=== PATIENT | male | born 1960 | race Caucasian/White ===

== ENCOUNTER 2024-02-05 10:10 | Observation (INO) | payer MEDICARE, BC ==
[2024-01-29 10:59] LABS: BASOPHILS % (AUTO) 0.2 % (0-1); BILIRUBIN,URINE NEGATIVE (Neg); CLARITY,URINE CLEAR (Clear); COLOR,URINE STRAW (Yellow); EOSINOPHILS % (AUTO) 0.3 % (0-6); GLUCOSE, URINE NEGATIVE (Neg); KETONES,URINE NEGATIVE (Neg); LEUKOCYTE ESTERASE ,URINE NEGATIVE (Neg); LYMPHOCYTES # (AUTO) 1.2 X10'3 (1.1-4.8); LYMPHOCYTES % (AUTO) 10.9 % (21-51); MEAN CORPUSCULAR HEMOGLOBIN 28.1 PG (27.0-31.0); MEAN CORPUSCULAR HGB CONC 32.7 g/dL (33.0-36.5); MEAN CORPUSCULAR VOLUME 86.1 FL (78-98); MEAN PLATELET VOLUME 8.8 FL (7.4-10.4); MONOCYTES # (AUTO) 0.8 X10'3 (0-0.9); MONOCYTES % (AUTO) 7.5 % (2-12); NEUTROPHILS # (AUTO) 8.5 X10'3 (1.8-7.7); NEUTROPHILS % (AUTO) 81.1 % (42-75); NITRITES, URINE NEGATIVE (Neg); OCCULT BLOOD,URINE NEGATIVE (Neg); PRE OP HEMATOCRIT 46.8 % (42.0-52.0); PRE OP HEMOGLOBIN 15.3 g/dL (14.0-17.9); PRE OP PLATELET COUNT 193 X10'3 (140-440); PRE OP WHITE BLOOD COUNT 10.5 10'3 (4.8-10.8); PROTEIN,URINE NEGATIVE (Neg); RED BLOOD COUNT 5.43 X10'6 (4.70-6.10); RED CELL DISTRIBUTION WIDTH 15.6 % (11.5-14.5)
[2024-01-29 11:00] LABS: UA COLLECTION TYPE NON-SPECIFIED
[2024-01-29 11:15] LABS: ALBUMIN 3.5 G/DL (3.4-5.0); ALBUMIN/GLOBULIN RATIO 0.9 (1.1-1.5); ALKALINE PHOSPHATASE 94 IU/L (46-116); BLOOD UREA NITROGEN 22 MG/DL (7-18); BUN/CREATININE RATIO 16.3 (10.0-20.0); CALCIUM 9.2 MG/DL (8.5-10.1); CHLORIDE 101 MMOL/L (99-107); CREATININE 1.35 MG/DL (0.60-1.10); PRE OP ALT 19 U/L (30-65); PRE OP ANION GAP 8 (8-16); PRE OP AST 30 U/L (10-37); PRE OP BILIRUB, TOTAL 0.8 MG/DL (0.0-1.0); PRE OP GLUCOSE 73 MG/DL (70-104); PRE OP SODIUM 139 MMOL/L (135-145); TOTAL CARBON DIOXIDE 30.1 MMOL/L (24-32); TOTAL PROTEIN 7.3 G/DL (6.4-8.2); eGFR 53 ML/MIN
[2024-01-29 11:18] LABS: PRE OP POTASSIUM 2.8 MMOL/L (3.4-5.1)
[~2024-02-05] VITALS: Ht 185.4 cm; Wt 96.9 kg
[2024-02-05] VITALS (27 sets, daily range): BP systolic 87–130; BP diastolic 53–80; PULSE 65–85; RESP 12–20; TEMP 98–98.3; O2SAT 91–99
[2024-02-05] MEDS: cefazolin 2gm/D5W 100mL 100 ML IV ONE (05:30)
[~2024-02-05 10:10] MED LIST: ACET-1008 PO; ALB0.5UD NEB; ALPR-624 PO; AMIO200T72 PO; CARV3.122 PO; CLOP-32 PO; DOCUMENT DATE & TIME OF BETA-BLOCKER PO ONE; FURO-149 PO; HYDR-3973 PO; IMIQ1CRE22 TOP; LEVO50CA4 PO; PANT-47 PO; POTA-188 PO; RIVA20TA PO; ROSU40TA PO; SACU1TAB PO; TADA5TAB2 PO; TEST60GE3 TOP; TRET20CR2 TOP; VITAMIN D3
[2024-02-05] MEDS: famotidine 20mg tablet PO ONE (11:48)
[2024-02-05] MEDS: ringers solution, lacted 1,000 ML IV SCH (11:50)
[2024-02-05 11:51] LABS: ISTAT CREATININE 1.4 mg/dL (0.8-1.3); ISTAT HGB 12.9 g/dl (14.0-17.9); ISTAT IONIZED CALCIUM 1.15 mmol/L (1.03-1.32); ISTAT K 3.5 mmol/L (3.5-5.1); POC BUN/CREATININE RATIO 18.6 (5.4-32.0)
[2024-02-05] MEDS ORDERED: ipratropium/albuterol 3ml nebule NEB PRN (13:00)
[2024-02-05] MEDS: ipratropium/albuterol 3ml nebule NEB ONE (13:09)
[2024-02-05] MEDS ORDERED: triamcinolone acetonide 40mg/ml inj ONE (14:23)
[2024-02-05] MEDS ORDERED: epiNEPHrine 1 mg/ml inj ONE (14:23)
[2024-02-05] MEDS ORDERED: BUPIVAcaine HCl 0.25%/EPInephrine 1:200,000 inj. 10 ML VIAL ONE (14:24)
[2024-02-05] MEDS ORDERED: BUPIVAcaine 0.5% inj/PF 30 ML ONE (14:24)
[2024-02-05] MEDS ORDERED: BUPIVAcaine/dex-water/PF 7.5 mg/ml 2ml ampul ONE (14:45)
[2024-02-05] MEDS ORDERED: MIDAZolam 1 MG/ML 5ML VIAL ONE (14:51)
[2024-02-05] MEDS ORDERED: fentaNYL/PF 50MCG/1 ML 2ML syringe ONE (14:51)
[2024-02-05] MEDS: bupivacaine 0.25%/epinephrine 1:200,000 inj (contains preserv. MDV) IJ ONE (15:22)
[2024-02-05] MEDS: epiNEPHrine 1 mg/ml inj SQ ONE (15:40)
[2024-02-05] MEDS ORDERED: propofol inj 20 ML IV ONE (15:56)
[2024-02-05] MEDS ORDERED: ePHEDrine 50MG/ML INJ. ONE (15:56)
[2024-02-05] MEDS ORDERED: meperidine/PF 25mg/ml syringe IV PRN ×3 (16:55)
[2024-02-05] MEDS ORDERED: labetalol 20mg/4ml (5mg/ml) syringe IV PRN (16:55)
[2024-02-05] MEDS ORDERED: morphine 2 MG/ML inj. syringe IV PRN (16:55)
[2024-02-05] MEDS ORDERED: morphine 4 MG/ML inj SYRINge IV PRN (16:55)
[2024-02-05] MEDS ORDERED: proCHLORperazine 10 MG/2 ml inj IV PRN (16:55)
[2024-02-05] MEDS ORDERED: ringers solution, lacted 1,000 ML IV SCH (16:55)
[2024-02-05] MEDS ORDERED: enalaprilat dihydrate 2.5mg/2ml vial IV PRN (16:55)
--- NOTE | 2024-02-05 17:19 | NUR ---
Received from OR via [facility] , accompanied by Anesthesiologist DR MOONEY and report given by Anesthesiologist. PATIENT AWAKE, PT REPORTS NO PAIN, BP LOW - DR MOONEY AWARE - NO ORDERS AT THIS TIME, SCD ON, 20G TO R FA, PT HAD SPINAL, HAS SENSATION AT DERMATOME LEVEL APPROXIMATELY S5. RLE DRSG CDI W/ SAVI WRAP. WILL CONTINUE TO CLOSELY MONITOR. Addendum: 02/05/24 at 1739 by Lynn Ward RN Amended: Links added.
[2024-02-05] MEDS: ceFAZolin/D5W- 1GM premix 50 ML IV ONE (18:19)
[2024-02-05] MEDS: ondansetron/PF 4mg/2ml inj IV PRN (18:47)
[2024-02-05] MEDS ORDERED: ondansetron/PF 4mg/2ml inj IV PRN (19:25)
[2024-02-05] MEDS ORDERED: oxyCODONE/APAP 10/325mg tablet PO PRN (19:25)
[2024-02-05] MEDS ORDERED: IMIQUIMOD 5% TOP PRN (19:45)
[2024-02-05] MEDS ORDERED: potassium chloride 10mEq ER tablet PO PRN (19:45)
[2024-02-05] MEDS ORDERED: TRETINOIN TOP PRN (19:45)
[2024-02-05] MEDS ORDERED: HYDROcodone/acetaminophen 10/325mg tab PO PRN (19:45)
[2024-02-05] MEDS ORDERED: furosemide 40mg tablet PO PRN (19:45)
--- NOTE | 2024-02-05 19:45 | NUR ---
SPOKE WITH DR TRUJILLO. ORDER TO ADMIT TO ORTHO FLOOR OVERNIGHT DUE TO LINGERING EFFECTS OF THE SPINAL ANESTHESIA. PT IS REGAINING FEELING TO LLE. STARTING TO REGAIN FEELING ON THE RLE. PT CAN SLIGHTLY WIGGLE TOES AND LIFT LEFT LEG, HOWEVER MOBILITY IS STILL VERY LIMITED. Addendum: 02/05/24 at 8 by Lynn Ward RN Amended: Links added.
[2024-02-05] MEDS ORDERED: TEST75GE10 TOP (19:47)
--- NOTE | 2024-02-05 19:59 | NUR ---
PATIENT HAS MET ALL CRITERIA FOR TRANSFER TO THE ORTHO FLOOR. VSS. RLE DRESSINGS INTACT. BED LOW, CALL LIGHT PRESENT AND 2 RAILS UP. RN PRESENT TO ACCEPT CARE OF PATIENT AND REPORT HAS BEEN CALLED. ALL QUESTIONS ANSWERED TO ACCEPTING RN. Addendum: 02/05/24 at 2002 by Lynn Ward RN Amended: Links added.
[2024-02-05] MEDS ORDERED: albuterol 2.5 MG/3 ML nebule NEB PRN (20:00)
[2024-02-05] MEDS: sacubitril/valsartan 24mg-26mg tablet PO SCH (20:00)
[2024-02-05] MEDS: ALPRAZolam 0.5mg tablet PO PRN (21:31)
[2024-02-05] MEDS: oxyCODONE/APAP 10/325mg tablet PO PRN (21:31)
[2024-02-05] MEDS: pantoprazole 40mg Tablet.DR PO SCH (21:32)
[2024-02-05] MEDS: carVEDilol 3.125mg tablet PO SCH (21:33)
[2024-02-06 00:30] VITALS: BP 126/63; PULSE 83; O2SAT 95
[2024-02-06 02:00] VITALS: BP 122/68; PULSE 75; RESP 19; TEMP 97.9; O2SAT 95
[2024-02-06 06:00] VITALS: BP 125/67; PULSE 79; RESP 14; TEMP 98.6; O2SAT 97
--- NOTE | 2024-02-06 06:40 | NUR ---
Patient in room ORTHO 4012. I have received report from Aminah JEFFERSON and had the opportunity to ask questions and assume patient care.
--- NOTE | 2024-02-06 06:47 | NUR ---
Problems reprioritized. Patient report given, questions answered & plan of care reviewed with Kay KIRBY.
[2024-02-06 08:00] VITALS: RESP 14; O2SAT 97
[2024-02-06] MEDS ORDERED: TESTOSTERONE TOP SCH (08:00)
[2024-02-06] MEDS ORDERED: clopidogrel 75mg tablet PO SCH (08:00)
[2024-02-06] MEDS: levoTHYROXINE 25mcg tablet PO SCH (08:05)
[2024-02-06] MEDS: amiodarone 200mg tablet PO SCH (08:05)
[2024-02-06] MEDS: atorvastatin 20mg tablet PO SCH (08:08)
[2024-02-06 08:36] VITALS: PULSE 74; RESP 18; O2SAT 96
--- NOTE | 2024-02-06 11:26 | NUR ---
Reviewed and agree with Kay KIRBY's assessment
--- NOTE | 2024-02-06 12:00 | NUR ---
Patient discharge home today. IV removed and all belongings were gathered. All discharge instructions were explained and all questions were answered. Patient a&oX4 and appropriate for discharge. Patient was wheeled downstairs and helped into private vehicle.
[2024-02-06] MEDS ORDERED: rivaroxaban 20mg tablet PO SCH (18:00)
== END 2024-02-06 11:34 | disposition home or self-care (01) ==
LOC: PAS 10:10 → ORTHO 4S 19:37
PROVIDERS: ADMIT Orthopaedic Surgery; ATTEND Orthopaedic Surgery
DX: M23.41 Loose body in knee, right knee (principal); M17.11 Unilateral primary osteoarthritis, right knee; D23.71 Other benign neoplasm of skin of right lower limb, including hip; M25.571 Pain in right ankle and joints of right foot; L57.0 Actinic keratosis; G89.29 Other chronic pain; I25.10 Atherosclerotic heart disease of native coronary artery without angina pectoris; K21.9 Gastro-esophageal reflux disease without esophagitis; E03.9 Hypothyroidism, unspecified; Z79.899 Other long term (current) drug therapy; Z95.1 Presence of aortocoronary bypass graft
CPT/HCPCS: 11402; 27331; 73560; 73564; 73600; 80047; 80053; 81003; 82948; 93005; 94640; 94760; A4215; A4618; A7000; G0378; J0690; J3490; J7120; 36415; 85025; 87081; A6222; A6449; J0171; J0665; J2250; J2405; J2704; J3010; J3301; S0020

== ENCOUNTER 2024-07-26 12:58 | Outpatient (CLI) | payer BC, MEDICARE ==
[~2024-07-26 12:58] MED LIST changes: -DOCUMENT DATE & TIME OF BETA-BLOCKER PO ONE; -TEST60GE3 TOP; +TEST75GE10 TOP
== END 2024-07-26 23:59 | disposition home or self-care (01) ==
LOC: LAB 12:58
PROVIDERS: ATTEND Emergency Medicine
DX: L97.526 Non-pressure chronic ulcer of other part of left foot with bone involvement without evidence of necrosis (principal); L97.522 Non-pressure chronic ulcer of other part of left foot with fat layer exposed
CPT/HCPCS: 87070; 87075; 87077; 87186

== ENCOUNTER 2024-09-26 08:18 | Outpatient (CLI) | payer MEDICARE ==
[2024-09-26 08:10] LABS: BASOPHILS # (AUTO) 0.1 X10'3 (0-0.2); BASOPHILS % (AUTO) 1.2 % (0-1); EOSINOPHILS % (AUTO) 0.7 % (0-6); HEMATOCRIT 38.5 % (42.0-52.0); HEMOGLOBIN 12.4 g/dl (14.0-17.9); LYMPHOCYTES # (AUTO) 0.9 X10'3 (1.1-4.8); LYMPHOCYTES % (AUTO) 15.5 % (21-51); MEAN CORPUSCULAR HEMOGLOBIN 27.6 PG (27.0-31.0); MEAN CORPUSCULAR HGB CONC 32.3 g/dL (33.0-36.5); MEAN CORPUSCULAR VOLUME 85.4 FL (78-98); MEAN PLATELET VOLUME 9.8 FL (7.4-10.4); MONOCYTES # (AUTO) 0.6 X10'3 (0-0.9); MONOCYTES % (AUTO) 9.8 % (2-12); NEUTROPHILS # (AUTO) 4.2 X10'3 (1.8-7.7); NEUTROPHILS % (AUTO) 72.8 % (42-75); PLATELET COUNT 165 X10'3 (140-440); RED BLOOD COUNT 4.51 X10'6 (4.70-6.10); RED CELL DISTRIBUTION WIDTH 14.2 % (11.5-14.5); WHITE BLOOD COUNT 5.7 X10'3 (4.5-11.0)
[2024-09-26 08:16] LABS: ALBUMIN 3.3 G/DL (3.4-5.0); ANION GAP 9 (8-16); BLOOD UREA NITROGEN 18 MG/DL (7-18); BUN/CREATININE RATIO 18.4 (10.0-20.0); CALCIUM 8.8 MG/DL (8.5-10.1); CHLORIDE 105 MMOL/L (99-107); CREATININE 0.98 MG/DL (0.60-1.10); GLUCOSE 109 MG/DL (70-104); SODIUM 142 MMOL/L (135-145); TOTAL CARBON DIOXIDE 28.2 MMOL/L (24-32); eGFR 77 ML/MIN
[~2024-09-26 08:18] MED LIST changes: -LEVO50CA4 PO; +LEVO50CA5 PO
== END 2024-09-26 23:59 | disposition home or self-care (01) ==
LOC: CANPRECLI → LAB 08:18
PROVIDERS: ATTEND Internal Medicine Infectious Disease
DX: T81.41XD Infection following a procedure, superficial incisional surgical site, subsequent encounter (principal); X58.XXXD Exposure to other specified factors, subsequent encounter
CPT/HCPCS: 36415; 80048; 85025

== ENCOUNTER 2024-11-06 08:32 | Day surgery (SDC) | payer MEDICARE, BC ==
[2024-10-31 11:09] LABS: BILIRUBIN,URINE NEGATIVE (Neg); CLARITY,URINE CLEAR (Clear); COLOR,URINE YELLOW (Yellow); GLUCOSE, URINE NEGATIVE (Neg); KETONES,URINE NEGATIVE (Neg); LEUKOCYTE ESTERASE ,URINE NEGATIVE (Neg); NITRITES, URINE NEGATIVE (Neg); OCCULT BLOOD,URINE SMALL (Neg); PROTEIN,URINE NEGATIVE (Neg); UROBILINOGEN,URINE 0.2 E.U/dL (0.2-1.0)
[2024-10-31 11:11] LABS: UA COLLECTION TYPE CLN CATCH MIDSTREAM
[2024-10-31 11:14] LABS: BASOPHILS # (AUTO) 0.1 X10'3 (0-0.2); BASOPHILS % (AUTO) 0.8 % (0-1); EOSINOPHILS # (AUTO) 0.1 X10'3 (0-0.9); EOSINOPHILS % (AUTO) 0.9 % (0-6); LYMPHOCYTES % (AUTO) 15.2 % (21-51); MEAN CORPUSCULAR HEMOGLOBIN 25.9 PG (27.0-31.0); MEAN CORPUSCULAR VOLUME 80.8 FL (78-98); MEAN PLATELET VOLUME 9.4 FL (7.4-10.4); MONOCYTES # (AUTO) 0.8 X10'3 (0-0.9); MONOCYTES % (AUTO) 12.2 % (2-12); NEUTROPHILS # (AUTO) 4.8 X10'3 (1.8-7.7); NEUTROPHILS % (AUTO) 70.9 % (42-75); PRE OP HEMATOCRIT 40.7 % (42.0-52.0); PRE OP PLATELET COUNT 207 X10'3 (140-440); PRE OP WHITE BLOOD COUNT 6.7 10'3 (4.8-10.8); RED BLOOD COUNT 5.04 X10'6 (4.70-6.10); RED CELL DISTRIBUTION WIDTH 14.2 % (11.5-14.5)
[2024-10-31 11:15] LABS: BACTERIA,URINE NONE SEEN /HPF (Neg); SQUAMOUS EPITHELIAL CELL,UR FEW /LPF (FEW); WBC,URINE 0-4 /HPF (0-4)
[2024-10-31 11:16] LABS: MUCUS STRANDS NONE SEEN /LPF (Neg)
[2024-10-31 11:27] LABS: ALBUMIN 3.3 G/DL (3.4-5.0); ALBUMIN/GLOBULIN RATIO 0.9 (1.1-1.5); ALKALINE PHOSPHATASE 154 IU/L (46-116); BLOOD UREA NITROGEN 24 MG/DL (7-18); BUN/CREATININE RATIO 18.6 (10.0-20.0); CALCIUM 9.2 MG/DL (8.5-10.1); CHLORIDE 104 MMOL/L (99-107); CREATININE 1.29 MG/DL (0.60-1.10); PRE OP ALT 37 U/L (30-65); PRE OP ANION GAP 10 (8-16); PRE OP AST 30 U/L (10-37); PRE OP BILIRUB, TOTAL 0.5 MG/DL (0.0-1.0); PRE OP GLUCOSE 100 MG/DL (70-104); PRE OP SODIUM 142 MMOL/L (135-145); TOTAL CARBON DIOXIDE 28.3 MMOL/L (24-32); TOTAL PROTEIN 7.1 G/DL (6.4-8.2); eGFR 56 ML/MIN
[2024-10-31 11:36] LABS: PRE OP POTASSIUM 3.3 MMOL/L (3.4-5.1)
[~2024-11-06] VITALS: Ht 185.4 cm; Wt 95.0 kg
[2024-11-06] VITALS (9 sets, daily range): BP systolic 111–159; BP diastolic 50–73; PULSE 66–83; RESP 10–16; TEMP 98.2; O2SAT 95–99
[~2024-11-06 08:32] MED LIST changes: -CARV3.122 PO; -IMIQ1CRE22 TOP
[2024-11-06] MEDS: ceFAZolin 2gm/dext,iso 50mL 50 ML IV ONE (09:21)
[2024-11-06] MEDS: famotidine 20mg tablet PO ONE (09:22)
[2024-11-06] MEDS: ringers solution, lacted 1,000 ML IV SCH (09:23)
[2024-11-06] MEDS ORDERED: meperidine/PF 25mg/ml syringe IV PRN ×3 (09:25)
[2024-11-06] MEDS ORDERED: morphine 4 MG/ML inj SYRINge IV PRN (09:25)
[2024-11-06] MEDS ORDERED: labetalol 20mg/4ml (5mg/ml) syringe IV PRN (09:25)
[2024-11-06] MEDS ORDERED: proCHLORperazine 10 MG/2 ml inj IV PRN (09:25)
[2024-11-06] MEDS ORDERED: enalaprilat 1.25mg/ml 2ml vial IV PRN (09:25)
[2024-11-06] MEDS ORDERED: ringers solution, lacted 1,000 ML IV SCH (09:25)
[2024-11-06] MEDS ORDERED: morphine 2 MG/ML inj. syringe IV PRN (09:25)
[2024-11-06] MEDS ORDERED: bacitracin 15gm ointment TP ONE (11:07)
[2024-11-06] MEDS ORDERED: BUPIVAcaine 2.5mg/ml inj 50ml vial (contains preservative) ONE (11:07)
[2024-11-06] MEDS ORDERED: midazolam 1 mg/ML 2ml injection ONE (12:06)
[2024-11-06] MEDS ORDERED: fentaNYL/PF 50MCG/1 ML 2ML syringe ONE (12:06)
[2024-11-06] MEDS ORDERED: propofol inj 20 ML IV ONE (12:07)
[2024-11-06] MEDS ORDERED: LIDOcaine 1%/PF 5ML 10 MG/ML VIAL ONE (12:07)
[2024-11-06] MEDS ORDERED: sevoflurane 250ml liquid IH ONE (12:41)
[2024-11-06] MEDS: ondansetron/PF 4mg/2ml inj IV PRN (13:52)
[2024-11-06] MEDS: BUPIVAcaine/PF 2.5 mg/ml (0.25%) 30ml vial IJ ONE (14:02)
--- NOTE | 2024-11-07 02:08 | OPERATIVE REPORT ---
DATE OF SURGERY: 11/06/2024 DICTATING PHYSICIAN: EVARISTO PULIDO DPM PREOPERATIVE DIAGNOSES: Left foot pain, left foot infection, left foot chronic ulcerations. POSTOPERATIVE DIAGNOSES: Left foot pain, left foot infection, left foot chronic ulcerations. PROCEDURES: * Partial great toe amputation, left foot. * Skin flap rotational closure, left foot. * Proximal phalanx great toe exostectomy, left foot. SURGEON: Evaristo Pulido DPM GRILL PREP COOK: None. ANESTHESIA: Dr. Solano, aquiles MAC general anesthesia. HEMOSTASIS: None. COMPLICATIONS: None. SPECIMENS: Left great toe for pathological specimen. ESTIMATED BLOOD LOSS: Less than 10 mL. HARDWARE: None. INDICATIONS: The patient presented to the office with the above-listed complaints, which has been unresponsive to conservative treatment options, thus surgical options have been offered along with the potential risks, complications, and surgical outcomes being fully explained to the patient's level of understanding. No guarantees were given. Clinical and radiographic data correlate with the above diagnosis. The patient presented from wound care after chronic trials of trying to heal his wounds, but unfortunately, this did not help. The patient was concerned about the overall chronicity of his wounds as well as the bone infection and healing. I offered him multiple treatment options and the patient ended up healing his second digit, so I did not have to perform any second digit surgery today. This is per the patient's request as well. I did talk to the patient once again about a partial amputation at the IPJ in order to help with the patient's longevity of this procedure in order to help our chances with healing and ultimately, this is what the patient and his elected to undergo. DESCRIPTION OF PROCEDURE: The patient was brought to the operating room and placed on the operating table in the supine position. The patient was induced under a modified MAC anesthesia and then the foot and ankle prepped and draped in the usual aseptic fashion. No tourniquet was used. Preoperative antibiotics were given and dosed appropriately. We then brought our attention to the distal aspect of the patient's left great toe. We then made an elliptical type of incision over the distal phalanx of the left great digit. This encompassed the wound to the dorsal aspect of the IPJ. We carefully dissected down to the level of bone using careful techniques in order to avoid any vital neurovascular structures. After this, we identified the distal phalanx, which was soft and had the appearance of infected bone, so therefore, we continued our dissection down to the level of the joint at the IPJ, which was then disarticulated. The toe was disarticulated and then this was placed into a specimen cup and sent for pathological specimen. There was no purulent drainage within the joint. The patient had a large prominence to the dorsal aspect of the IPJ at the proximal phalanx, which was carefully rongeured away and then all rough edges were then smoothed. After this, we then flushed with copious amounts of sterile normal saline and IrriSept solution. After this, we then performed a rotational skin flap closure, which was less than 10 cm, and we used the plantar skin in order to rotate and advance the skin over the dorsal aspect in order to have appropriate skin closure. The skin was closed with a 3-0 nylon in a horizontal mattress technique. It was noted that there was excellent closure and excellent stability of our closure, so therefore, we dressed our incision with triple antibiotic ointment followed by Adaptic, 4x4s, and a Webril. The patient was placed into an Kris bandage in formation of moderate compressive dressing. The patient was then taken out of the anesthesia and then placed into PACU. Vital signs stable and vascular status intact to the operative foot. The patient is going to be partially protected weightbearing to the operative foot. The patient was given a boot, which was dispensed from my office and fit to the patient today. The patient is to follow up with me in approximately 1-2 weeks after surgery. The entire case was performed in a teaching fashion. I was available pre and and postoperatively to answer any questions from the patient and his family. EVARISTO PULIDO DPM TID: [id number] RECEIPT: [id number] SANTIAGO/KASSANDRA
--- NOTE | 2024-11-07 15:56 | PATHOLOGY REPORT ---
[facility] [address] [place] [address] SURGICAL PATHOLOGY REPORT CaseNumber: [id number] Surgeon:Evaristo Pulido M.D. CLINICAL INFORMATION CLINICAL INFORMATION: Not provided. DIAGNOSIS DIAGNOSIS: TOE, LEFT GREAT; AMPUTATION - ULCER WITH ADVANCED ATHEROSCLEROSIS. - VIABLE RESECTION MARGIN WITH LIMITED MINIMAL CHRONIC INFLAMMATION. - NEGATIVE FOR DYSPLASIA AND MALIGNANCY. MICROSCOPIC DESCRIPTION MICROSCOPIC DESCRIPTION: Microscopic examination is performed on two H&E stained slides. Present is u lcer extending into the superficial soft tissue. There is advanced atherosclerosis present. The resec tion margin appears viable with limited chronic inflammation. There is no evidence of dysplasia or ma lignancy within the tissue. (st) GROSS DESCRIPTION GROSS DESCRIPTION: Received in a container of formalin labeled with the patient's name, number, and " L great toe" is a portion of toe which measures 4 cm long by 3 cm in diameter. There are two areas o f ulceration measuring 1.5 and 0.7 cm. Sections are submitted as follows: A1) Skin at resection marginA2) Ulcers The time at which the specimen was removed was 1245. The time at which the specimen was placed in [facility] was 1246. Electronically signed by: Nomi Galvez D.O. 11/07/2024 3:21:00 PM
== END 2024-11-06 14:25 | disposition home or self-care (01) ==
LOC: PAS 08:32
PROVIDERS: ATTEND Podiatrist Foot & Ankle Surgery
DX: L97.528 Non-pressure chronic ulcer of other part of left foot with other specified severity (principal); I70.245 Atherosclerosis of native arteries of left leg with ulceration of other part of foot; M21.6X2 Other acquired deformities of left foot; M79.672 Pain in left foot; I42.9 Cardiomyopathy, unspecified; I25.2 Old myocardial infarction; I10 Essential (primary) hypertension; E11.9 Type 2 diabetes mellitus without complications; G47.30 Sleep apnea, unspecified; I25.10 Atherosclerotic heart disease of native coronary artery without angina pectoris; E78.5 Hyperlipidemia, unspecified; Z88.8 Allergy status to other drugs, medicaments and biological substances; Z98.890 Other specified postprocedural states; Z95.5 Presence of coronary angioplasty implant and graft; Z79.899 Other long term (current) drug therapy; Z87.891 Personal history of nicotine dependence
CPT/HCPCS: 28825; 36415; 73660; 80053; 81001; 82948; 85025; A4618; A6223; A6253; A6402; A6449; A7000; J2250; J2405; J2704; J3010; J3490; J7030; J7120; Z7506; Z7512; Z7610; 76000

== ENCOUNTER 2025-06-10 08:04 | Day surgery (SDC) | payer MEDICARE, BC ==
[2025-06-10] VITALS (8 sets, daily range): BP systolic 115–142; BP diastolic 74–82; PULSE 63–74; RESP 16–22; TEMP 98.2; O2SAT 94–99
[~2025-06-10] VITALS: Ht 185.4 cm; Wt 99.3 kg
[2025-06-10] MEDS: metoprolol tartrate 12.5mg (1/2 tablet) PO ONE (05:30)
[~2025-06-10 08:04] MED LIST changes: +BUPIVAcaine/PF 2.5mg/ml (0.25%) 10ml vial ONE; +CHOL10005 PO; +DOXY100T2 PO; +LIDOcaine 1%/PF 5ML 10 MG/ML VIAL ONE; -TEST75GE10 TOP; -VITAMIN D3; +ceFAZolin 2gm/dext,iso 50mL 50 ML IV ONE; +ringers solution, lacted 1,000 ML IV SCH
--- NOTE | 2025-06-10 08:57 | ELECTROCARDIOGRAPH REPORT ---
[facility] Test Date: 2025-06-10 Test Time: 08:54:42 Pat Name: RENATO BARDALES Department: [id number] Room: Gender: M Skates Operator: ALEXI : 1960 Requested By: JHONY RAMOS Order Number: [id number] Reading MD: Dr. MICHA Ronquillo Measurements Intervals [place] Rate: 60 P: 110 PA: 166 QRS: 232 QRSD: 134 T: 135 QT: 483 QTc: 483 Interpretive Statements A-V dual-paced rhythm with some inhibition No further analysis attempted due to paced rhythm Electronically Signed On 06-10-2025 13:10:[address] MICHA Ronquillo Please click the below link to view image of tracing.
[2025-06-10 09:29] LABS: MEAN PLATELET VOLUME 9.0 FL (7.4-10.4); PRE OP HEMATOCRIT 41.1 % (42.0-52.0); PRE OP HEMOGLOBIN 13.0 g/dL (14.0-17.9); PRE OP PLATELET COUNT 197 X10'3 (140-440); PRE OP WHITE BLOOD COUNT 5.2 10'3 (4.8-10.8); RED CELL DISTRIBUTION WIDTH 15.1 % (11.5-14.5)
[2025-06-10] MEDS: mupirocin 2% nasal ointment 1gm UD NS ONE (09:30)
[2025-06-10] MEDS ORDERED: fentaNYL/PF 50MCG/1 ML 2ML syringe ONE (09:40)
[2025-06-10] MEDS ORDERED: ringers solution, lacted 1,000 ML IV SCH (09:40)
[2025-06-10] MEDS ORDERED: morphine 4 MG/ML inj SYRINge IV PRN (09:40)
[2025-06-10] MEDS ORDERED: acetaminophen 1,000mg/100ml IV 100 ML IV PRN (09:40)
[2025-06-10] MEDS ORDERED: ondansetron/PF 4mg/2ml inj IV PRN (09:40)
[2025-06-10] MEDS ORDERED: hydrALAZINE 20mg/ml inj. IV PRN (09:40)
[2025-06-10] MEDS ORDERED: labetalol 20mg/4ml (5mg/ml) syringe IV PRN (09:40)
[2025-06-10] MEDS ORDERED: HYDROmorphone/PF 0.2 MG/ML SYRINGE IV PRN ×2 (09:40)
[2025-06-10] MEDS ORDERED: midazolam 1 mg/ML 2ml injection ONE (09:44)
[2025-06-10] MEDS ORDERED: propofol inj 20 ML IV ONE ×2 (09:55)
--- NOTE | 2025-06-10 10:56 | OPERATIVE REPORT ---
Operative Report Operative Report Cardiovascular surgery operative report 10 June 2025 Preoperative diagnosis: Ischemic cardiomyopathy, status post biventricular ICD implantation with generator ALIDA Postop diagnosis: Same Procedure: Bi V ICD generator replacement with revision of pocket Surgeon: Dr. Jhony Crook Anesthesia: Local with 1% lidocaine approximately 10 cc with monitored anesthesia coverage by Dr. Rosario Complications: None EBL: 10 mL Procedure: Patient taken to the operating room placed in supine position. Following the administration of intravenous sedation and the placement of appropriate lines the anterior chest was prepped and draped sterilely. The skin subcutaneous tissue and pocket surrounding the pulse generator in the left prepectoral soft tissues was infiltrated with 1% lidocaine. The previous scar was excised and the incision was carried down through subcutaneous tissue with electrocautery to the level of the pocket. The pocket was noted to be extremely calcified was very difficult to incised. This was done with some difficulty. The anterior portion of the pocket was therefore excised while the generator be freed. The leads were then disconnected. They were connected to the new generator which was a [employer] intake serial [id number]. [id number] the leads were freed and attached to the pulse generator. They were tested through the new device and found to have a the atrial threshold was 0.5 volts with an impedance of 424 Ohms at 5 volts. The sensing P-wave was 5.2 mV, the right ventricular lead had a threshold was 0.7 volts with impedance of 404 Ohms at 5 volts and a sensing R- wave of 18.2 mV and the left ventricular lead had a threshold of 1.1 volts at a an impedance of 9 51 Ohms at 5 volts. Its sensing R-wave was 12.7 mV. These were all felt to be satisfactory. Therefore the pacemaker was placed back within the pocket. Ring. This had to be enlarged using electrocautery. Careful hemostasis was achieved. The pocket was then copiously irrigated with antibiotic solution. The patient was Gr[place]on generator was placed within the pocket and secured to the anterior pectoralis major muscle fascia with interrupted 2-0 Ethibond. The pocket was then closed by reapproximating the subcutaneous tissue with interrupted 2-0 Vicryl and the skin with a running 4-0 Monocryl subcuticular suture. Steri-Strips were applied to skin and a Bioclusive dressing was placed. The patient is then returned to the recovery room in stable condition, having tolerated the procedure satisfactorily. There were no complications. Sponge, needle and instrument counts were correct x2 at the end of the case. JHONY CROOK III, MD Jun 10, 2025 10:56
--- NOTE | 2025-06-10 11:39 | RADIOLOGY REPORT ---
CHEST RADIOGRAPH Indication: POST GENERATOR Technique: Single frontal view of the chest was obtained COMPARISON: None FINDINGS: Lines and Tubes: Left chest AICD. Lungs: Increased interstitial prominence. This may represent pulmonary vascular congestion and/or viral pneumonia. Pleura: Possible small left pleural effusion. No pneumothorax. Cardiomediastinal contours: Median sternotomy. Cardiomegaly. Bones: IMPRESSION: Cardiomegaly with possible small left pleural effusion. Increased interstitial prominence. This may represent pulmonary vascular congestion and/or viral pneumonia.
== END 2025-06-10 11:40 | disposition home or self-care (01) ==
LOC: PAS 08:04
PROVIDERS: ATTEND Thoracic Surgery (Cardiothoracic Vascular Surgery)
DX: Z45.02 Encounter for adjustment and management of automatic implantable cardiac defibrillator (principal); I25.5 Ischemic cardiomyopathy; I25.10 Atherosclerotic heart disease of native coronary artery without angina pectoris; G47.33 Obstructive sleep apnea (adult) (pediatric); I10 Essential (primary) hypertension; I25.2 Old myocardial infarction; I47.20 Ventricular tachycardia, unspecified; E78.5 Hyperlipidemia, unspecified; Z88.1 Allergy status to other antibiotic agents; Z79.899 Other long term (current) drug therapy; Z95.810 Presence of automatic (implantable) cardiac defibrillator; Z86.711 Personal history of pulmonary embolism; Z95.1 Presence of aortocoronary bypass graft; Z98.890 Other specified postprocedural states; Z86.718 Personal history of other venous thrombosis and embolism
CPT/HCPCS: 33264; 36415; 71045; 85025; 93005; A4215; A4618; A6258; A7000; C1882; J0690; J2250; J2704; J3010; J3490; J7030; J7120; Z7506; Z7508; Z7512; Z7610